=== PATIENT | male | born 1970 | race Caucasian/White ===

== ENCOUNTER 2019-11-10 20:58 | Inpatient (IN) | payer OTHER ==
[~2019-11-10] VITALS: Ht 177.8 cm; Wt 137.8 kg
[~2019-11-10 20:58] MED LIST: ACCUNEB SO1.25 MG/1; ALBUTEROL2.5 MG/31 IH; APAP/CODEINE ELI5 M1 PO; BACTRIM DS TAB1 EACH PO; CIPROFLOXACIN500 M1 PO; CORTISPORIN OTI10 M2 OT; DOXYCYCLINE 10100 MG PO; MEDROLDOSEPACK PO; MICARDIS HCT 81 EACH PO; MUCINEX600 MG PO; NORCO 5-325 TA1 EACH PO; VICOPROFEN 2001 EACH PO; ZPAK PO
[2019-11-10 20:59] VITALS: BP 178/103
[2019-11-10] MEDS ORDERED: METFORMIN HCL500 M3 PO (21:09)
[2019-11-10] MEDS ORDERED: PROAIR HFA8.5 GM INH (21:09)
[2019-11-10] MEDS ORDERED: ADVAIR HFA 115-12 G1 INH (21:10)
[2019-11-10] MEDS ORDERED: LIPITOR10 MG PO (21:11)
[2019-11-10 21:35] LABS: ABSOLUTE BASOPHILS 0.1 thou/uL (0.0-0.2); ABSOLUTE EOSINOPHILS 0.3 thou/uL (0.0-0.7); ABSOLUTE LYMPHOCYTES 2.7 thou/uL (0.8-5.3); ABSOLUTE MONOCYTES 0.5 thou/uL (0.0-1.2); ABSOLUTE NEUTROPHILS 4.6 thou/uL (1.6-8.1); BASOPHILS 1.3 %; EOSINOPHILS 3.4 %; HEMATOCRIT 45.2 % (42.0-52.0); LYMPHOCYTES 33.3 %; MCH 32.9 pg (26.0-34.0); MCHC 35.4 g/dL (28.0-37.0); MCV 92.9 fL (80.0-100.0); MONOCYTES 6.6 %; MPV 8.4 fl. (7.2-11.1); NUCLEATED RBCS 0 /100WBC; PLATELET COUNT* 243 thou/uL (150-400); POLYS 55.4 %; RBC 4.86 mil/uL (4.50-6.00); RDW-CV 12.9 % (10.5-14.5); WBC 8.2 thou/uL (4.0-11.0)
[2019-11-10 21:46] LABS: CALCIUM 8.6 mg/dL (8.5-10.1); POTASSIUM 4.2 mmol/L (3.5-5.1)
[2019-11-10 21:48] LABS: INR 0.9; PROTIME 9.6 Seconds (9.20-11.50)
[2019-11-10 21:57] LABS: ALBUMIN 3.5 g/dL (3.4-5.0); MAGNESIUM 1.7 mg/dL (1.8-2.4); TOTAL BILIRUBIN 0.4 mg/dL (<0.1-1.0); TOTAL PROTEIN 7.7 g/dL (6.4-8.2)
[2019-11-10 22:51] LABS: URINE BILIRUBIN NEGATIVE (Negative); URINE BLOOD TRACE (Negative); URINE CLARITY CLEAR; URINE COLOR YELLOW; URINE GLUCOSE-RANDOM 1+ (Negative); URINE KETONES NEGATIVE (Negative); URINE LEUKOCYTES-REFLEX NEGATIVE (Negative); URINE NITRITE-REFLEX NEGATIVE (Negative); URINE PROTEIN 1+ (Negative); URINE SPECIFIC GRAVITY 1.025 (1.005-1.030); URINE UROBILINOGEN 0.2 E.U./dl (0.2-1.0)
[2019-11-10 23:09] LABS: AMP/METHAMP Negative (Negative); BARBITURATES Negative (Negative); BENZODIAZEPINES Negative (Negative); COCAINE Negative (Negative); METHADONE Negative (Negative); OPIATES POSITIVE (Negative); PCP Negative (Negative); THC Negative (Negative)
[2019-11-11] VITALS (16 sets, daily range): BP systolic 106–152; BP diastolic 61–86
[2019-11-11 09:14] LABS: HEMATOCRIT 43.4 % (42.0-52.0); HEMOGLOBIN 15.3 gm/dL (14.0-18.0); MCH 32.7 pg (26.0-34.0); MCHC 35.2 g/dL (28.0-37.0); MCV 92.8 fL (80.0-100.0); MPV 8.8 fl. (7.2-11.1); RBC 4.67 mil/uL (4.50-6.00); RDW-CV 12.8 % (10.5-14.5); WBC 8.2 thou/uL (4.0-11.0)
[2019-11-11 09:22] LABS: APTT 25.3 Seconds (25.0-31.3); INR 0.9; PROTIME 9.7 Seconds (9.20-11.50)
[2019-11-11 09:36] LABS: ANION GAP 7 mmol/L (7-16); BUN 10 mg/dL (7-18); CALCIUM 8.2 mg/dL (8.5-10.1); CHLORIDE 102 mmol/L (98-107); CHOLESTEROL 159 mg/dL (<200); CO2 27 mmol/L (21-32); CREATININE 0.8 mg/dL (0.6-1.3); GLUCOSE 208 mg/dL (70-99); HDL CHOLESTEROL 21 mg/dL (>40); LDL CHOLESTEROL 87 mg/dL (<100); MAGNESIUM 1.7 mg/dL (1.8-2.4); POTASSIUM 4.1 mmol/L (3.5-5.1); SODIUM 136 mmol/L (136-145); TC:HDL 7.6 Ratio (Not establshd); TRIGLYCERIDE 258 mg/dL (<150); VLDL 52 mg/dL (<40)
[2019-11-11 09:39] LABS: SERUM ASSESSMENT Clear; TROPONIN-I LEVEL 1.04 ng/mL (<0.06)
--- NOTE | 2019-11-11 11:05 | EKG ---
[place] [address] ELECTROCARDIOGRAM REPORT Name: PADMINI PINTO Room: [address] ADM IN .R.#: [id number] Admission: 11/11/19 Attend Phys: Parisa Pal Discharge: Date of : 70 Date of Service: 11/10/192100 Report #: [id number] THIS REPORT FOR: //name// [facility] ED Test Date: 2019-11-10 Test Time: 21:01:09 Pat Name: PADMINI PINTO Department: Room: [facility] Gender: M Management Trainer: [place] : 1970 Requested By: Donna Austin Order Number: [id number] MD: Nehemias Calderón Measurements Intervals [place] Rate: 91 P: 68 UT: 135 QRS: 37 QRSD: 97 T: 19 QT: 351 QTc: 432 Interpretive Statements Sinus rhythm Baseline wander in lead(s) II,III,aVR,aVL,aVF Compared to ECG 06/08/2009 23:48:49 Sinus tachycardia no longer present Electronically Signed On 11-11-2019 11:05:28 CDT by Nehemias Calderón [email or web address] <ELECTRONICALLY SIGNED> By: Nehemias Calderón MD, FACC 11/11/19 1105 00 00 Nehemias Calderón MD, FAC /EPI
--- NOTE | 2019-11-11 11:10 | EKG ---
[place] [address] ELECTROCARDIOGRAM REPORT Name: PADMINI PINTO Room: [address] ADM IN M.R.#: [id number] Admission: 11/11/19 Attend Phys: Parisa Pal Discharge: Date of : 70 Date of Service: 11/11/19 0949 Report #: [id number] THIS REPORT FOR: //name// [facility] Test Date: 2019-11-11 Test Time: 09:49:08 Pat Name: PADMINI PINTO Department: Room: [address] Gender: M Product Safety Consultant: : 1970 Requested By: Alex Ga Order Number: [id number] Eduardo MD: Nehemias Calderón Measurements Intervals [place] Rate: 65 P: 57 ID: 133 QRS: 44 QRSD: 102 T: 9 QT: 414 QTc: 431 Interpretive Statements Sinus rhythm Compared to ECG 11/10/2019 21:01:09 No significant changes Electronically Signed On 11-11-2019 11:10:35 CDT by Nehemias Calderón [email or web address] <ELECTRONICALLY SIGNED> By: Nehemias Calderón MD, [facility] 11/11/19 1110 0949 0949 Nehemias Calderón MD, [facility] /EPI
--- NOTE | 2019-11-11 16:55 | CARD ---
[address] [address] CARDIAC CATH REPORT Name: PADMINI PINTO Room: [address] IN [facility]#: [id number] Admission: 11/11/19 Attend Phys: Tirso Leahy Discharge: Date of : 70 Report #: [id number] THIS REPORT FOR: //name// cc: Burt Howard Russell J. DO ~ APPROVED REPORT Study performed: 11/11/2019 13:38:07 Patient Details Patient Status: In-Patient Room #: The patient is a 49 year-old male Event Personnel Nehemias Calderón Director Of Social Work, Eboni Lehman Anesthesia Associate, Fariha Tuttle RN Anesthesia Associate, Moses Turcios DELI MANAGER Monitor, Mitzi Wang RTR Scrub Procedures Performed Left Heart Cath w/or w/o Coronaries [id number] [facility] Left Heart Cath w/or w/o Coronaries [id number] [facility] Indication Non-STEMI , Chest pain Risk Factors Diabetes Tobacco History () Admission/Lab Medications/Medications given during procedure Heparin Unfract. Procedure Narrative The patient was brought electively to the Cardiac Catheterization Laboratory and was prepped and draped in a sterile manner. The right wrist was infiltrated with 1% Lidocaine subcutaneous anesthesia. A Slender Glidesheath sheath was inserted into the RRA. Coronary angiography was performed using coronary diagnostic catheters. The right coronary system was accessed and visualized with a JR4 catheter. The left coronary system was accessed and visualized with a JL3.5 catheter. The left ventricle was accessed and visualized with a Angled PIG catheter. Left ventricular/Aortic Valve gradient assessed via catheter pullback. Closure device was deployed with a 6 Fr R-Band. The patient tolerated the procedure well and there were no complications associated with the procedure. [place] [address] CARDIAC CATH REPORT Name: PADMINI PINTO Room: [address] IN [facility]#: [id number] Admission: 11/11/19 Attend Phys: Tirso Leahy Discharge: Date of : 70 Report #: [id number] Intraoperative Conscious Sedation Sedation start time: 1425 Case end Time: 1446 Fentanyl 25.0 mcg Fluoro Time: 3.2 minutes Dose: DAP 37697 cGycm2 1171 mGy Contrast Type and Amount: Omnipaque 100 ml Coronary Angiography The patient's coronary anatomy is right dominant. [place] Artery Percent Stenosis Left Main: 0 % Prox LAD: 50 % Mid/Distal LAD: 0 % Circumflex: 0 % RCA: 0 % Ramus: 0 % Left Ventriculography The left ventricular ejection fraction is estimated to be 50-55%. Left ventricular wall motion abnormalities are not present. There is no mitral insufficiency. Hemodynamics The aortic pressure is 141/85 mmHg with a mean of 112 mmHg. The left ventricular pressure is 135/10 mmHg with a mean of mmHg. The left ventricular end diastolic pressure is 19 mmHg. There was no gradient across the aortic valve upon pullback. Pullback from the left ventricle to the aorta revealed no gradient across the aortic valve. Conclusion 1. 50% stenosis noted of the proximal lad 2. LVEF 50-55% 3. Suspect noncardiac chest pain, and falsely minimal elevation of troponin Recommendations Smoking Cessation <ELECTRONICALLY SIGNED> By: Nehemias Calderón MD, FACC 11/11/191654 54 54Damariel Calderón MD, FACC /INF
[2019-11-12] VITALS: BP 126/74
[2019-11-12 02:06] LABS: GLYCOHEMOGLOBIN (HGB A1C) 8.9 % (4.8-5.6)
[2019-11-12 04:30] VITALS: BP 136/77
[2019-11-12] MEDS ORDERED: TRADJENTA5 MG PO (08:34)
[2019-11-12] MEDS ORDERED: ASA81BEC PO (08:35)
[2019-11-12] MEDS ORDERED: NITROGLYCERIN0.4 MG SUBLING (08:35)
[2019-11-12] MEDS ORDERED: OMEPRAZOLE40 MG PO (08:36)
[2019-11-12] MEDS ORDERED: METOPROLOL TART25 MG PO (08:39)
[2019-11-12] MEDS ORDERED: PLAVIX 75 MG TA75 MG PO (09:05)
[2019-11-12 10:25] VITALS: BP 136/77
[2019-11-12 11:00] VITALS: BP 136/77
--- NOTE | 2019-11-14 15:01 | CON ---
[address] [address] CONSULTATION Name: PADMINI PINTO Room: [address] IN M.R.#: [id number] Admission: 11/11/19 Attend Phys: Tirso Leahy Discharge: 11/12/19 Date of : 70 Report #: [id number] THIS REPORT FOR: //name// cc: Burt Howard Russell J. DO ~ THIS REPORT FOR: //name// CC: Parisa Howard DO DATE OF SERVICE: 11/11/2019 CARDIOLOGY CONSULTATION PRIMARY CARE PHYSICIAN: Burt Howard DO HISTORY OF PRESENT ILLNESS: The patient is a 49-year-old single white male who I was asked to see in the hospital today after he complained of chest pain. The patient has no previous history of heart disease. He does not exercise on a regular basis. He was doing well until yesterday, he was driving his truck when all of sudden he felt a discomfort in his chest, jaw, neck and arms. He denied any diaphoresis or nausea. He does cough every day, but denies any chest pain being related to cough. He denied any chest pain related to swallowing. He has had no belching. He has had no bleeding. Denied rash on his chest. He called the ambulance and he was brought here to [place]. The pain persisted throughout the night. Cardiology consultation was requested. He does have exertional dyspnea, occasional episodes where his heart rate would increase. He has had no syncope, leg edema or leg pain. PAST MEDICAL HISTORY: He has had hernia repair, elbow surgery, diabetes, hyperlipidemia and sleep apnea. MEDICATIONS: Include metformin, Lipitor, CPAP. FAMILY HISTORY: Significant for hypertension. SOCIAL HISTORY: He is single, lives with a girlfriend in [place]. He is a armored truck driver. Smokes one-half pack of cigarettes a day. No alcohol abuse, no illicit drug use. REVIEW OF SYSTEMS: He is overweight, being 5 feet 8 inches, 300 pounds. He has sleep apnea. No stroke. He has COPD. No liver disease, no kidney disease, no cancer. No psychiatric illness. No chronic skin condition. PHYSICAL EXAMINATION: [place] [address] CONSULTATION Name: PADMINI PINTO Room: [address]#: [id number] Admission: 11/11/19 Attend Phys: Tirso Leahy Discharge: 11/12/19 Date of : 70 Report #: [id number] GENERAL: Revealed a large, obese male, lying in bed. He appeared in no acute distress. VITAL SIGNS: He had a blood pressure of 150/80, pulse is 80. He was afebrile. HEENT: He was anicteric. Conjunctivae pink. Mucous membranes moist. NECK: Veins difficult to assess due to obesity. No carotid bruits. CHEST: Clear to auscultation. CARDIOVASCULAR: Regular rate and rhythm without murmur. ABDOMEN: Obese. EXTREMITIES: Had no edema. Dorsalis pedis pulse 1+ bilaterally. SKIN: Cool and dry. NEUROLOGIC: Nonfocal. RADIOLOGICAL DATA: His ECG on admission last night showed a sinus rhythm. There was no significant ST or T-wave change noted. His x-rays last night; he had a CT scan of the chest using a PE protocol that showed no pulmonary embolus, some atelectasis, small nodule. His chest x-ray was unremarkable, borderline heart size. LABORATORY DATA: Sodium 136, creatinine 0.8, glucose 208. Liver function studies were normal. His troponin 1.0. His cholesterol 159, triglyceride 258, HDL 21, LDL 87. His hemoglobin is 15.3. IMPRESSION AND RECOMMENDATIONS: 1. Non-ST elevation myocardial infarction. Recommend cardiac catheterization. 2. Hypertension. 3. Diabetes. 4. Hypertriglyceridemia. 5. Sleep apnea. 6. Obesity. 7. Neck pain. Suspect musculoskeletal. <ELECTRONICALLY SIGNED> By: Nehemias Calderón MD, FACC 11/14/19 1501 1135 1208David Mayra Calderón MD, FACC /nt
== END 2019-11-12 11:45 | disposition home or self-care (01) | DRG 280 ==
LOC: M.ERS 20:58 → M.TBA-ER 11-11 00:08 → M.2W 11-11 02:03
PROVIDERS: Emergency Medicine; Internal Medicine; ADMIT Internal Medicine; ATTEND Internal Medicine
PROC: B2111ZZ Fluoroscopy of Multiple Coronary Arteries using Low Osmolar Contrast (ICD-10-PCS; principal; 2019-11-11)
PROC: B2151ZZ Fluoroscopy of Left Heart using Low Osmolar Contrast (ICD-10-PCS; principal; 2019-11-11)
PROC: 4A023N7 Measurement of Cardiac Sampling and Pressure, Left Heart, Percutaneous Approach (ICD-10-PCS; principal; 2019-11-11)
DX: I21.4 Non-ST elevation (NSTEMI) myocardial infarction (principal); I50.31 Acute diastolic (congestive) heart failure; Z68.41 Body mass index [BMI] 40.0-44.9, adult; K21.9 Gastro-esophageal reflux disease without esophagitis; J98.01 Acute bronchospasm; I11.0 Hypertensive heart disease with heart failure; E11.9 Type 2 diabetes mellitus without complications; G47.30 Sleep apnea, unspecified; F17.210 Nicotine dependence, cigarettes, uncomplicated; E78.1 Pure hyperglyceridemia; M54.2 Cervicalgia; J44.9 Chronic obstructive pulmonary disease, unspecified; E66.01 Morbid (severe) obesity due to excess calories; G89.29 Other chronic pain; E83.42 Hypomagnesemia; R59.1 Generalized enlarged lymph nodes; D71 Functional disorders of polymorphonuclear neutrophils; I73.9 Peripheral vascular disease, unspecified; Z20.828 Contact with and (suspected) exposure to other viral communicable diseases; Z72.89 Other problems related to lifestyle; Z79.84 Long term (current) use of oral hypoglycemic drugs; Z79.899 Other long term (current) drug therapy; Z88.1 Allergy status to other antibiotic agents; Z88.0 Allergy status to penicillin

== ENCOUNTER 2019-12-12 07:37 | Observation (INO) | payer OTHER ==
[~2019-12-12] VITALS: Ht 152.4 cm; Wt 65.2 kg
[2019-12-12] VITALS (8 sets, daily range): BP systolic 115–155; BP diastolic 68–87
--- NOTE | ~2019-12-12 | H ---
[address] [address] HISTORY AND PHYSICAL Name: PADMINI PINTO Room: [address] [place]#: [id number] Admission: 12/12/19 Attend Phys: Jeremiah Jackson MD, Discharge: 12/13/19 Date of : 70 Report #: [id number] THIS REPORT FOR: //name// cc: Burt Howard Russell J. DO ~ Please refer to the History and Physical performed in the physician's office. By: [id number] Records Staff [facility] /LASHONDA
[~2019-12-12 07:37] MED LIST changes: +ADVAIR HFA 115-12 G1 INH; +ASA81BEC PO; +LIPITOR10 MG PO; +METFORMIN HCL500 M3 PO; +METOPROLOL TART25 MG PO; +NITROGLYCERIN0.4 MG SUBLING; +OMEPRAZOLE40 MG PO; +PLAVIX 75 MG TA75 MG PO; +PROAIR HFA8.5 GM INH; +TRADJENTA5 MG PO
[2019-12-12 08:24] LABS: HEMATOCRIT 43.5 % (42.0-52.0); HEMOGLOBIN 15.1 gm/dL (14.0-18.0); MCH 32.1 pg (26.0-34.0); MCHC 34.7 g/dL (28.0-37.0); MCV 92.4 fL (80.0-100.0); MPV 8.3 fl. (7.2-11.1); RBC 4.71 mil/uL (4.50-6.00); WBC 8.3 thou/uL (4.0-11.0)
[2019-12-12 08:37] LABS: ANION GAP 9 mmol/L (7-16); APTT 22.6 Seconds (25.0-31.3); BUN 12 mg/dL (7-18); CALCIUM 8.2 mg/dL (8.5-10.1); CHLORIDE 101 mmol/L (98-107); CO2 27 mmol/L (21-32); CREATININE 0.8 mg/dL (0.6-1.3); GLUCOSE 304 mg/dL (70-99); INR 0.9; POTASSIUM 4.2 mmol/L (3.5-5.1); PROTIME 9.5 Seconds (9.20-11.50); SODIUM 137 mmol/L (136-145)
[2019-12-12 08:41] LABS: ALBUMIN 3.6 g/dL (3.4-5.0); ALKALINE PHOSPHATASE 130 U/L (46-116); CHOLESTEROL 117 mg/dL (<200); HDL CHOLESTEROL 21 mg/dL (>40); LDL CHOLESTEROL 55 mg/dL (<100); SGOT 17 U/L (15-37); SGPT 34 U/L (30-65); TC:HDL 5.6 Ratio (Not establshd); TOTAL BILIRUBIN 0.4 mg/dL (<0.1-1.0); TOTAL PROTEIN 7.6 g/dL (6.4-8.2); TRIGLYCERIDE 208 mg/dL (<150); VLDL 42 mg/dL (<40)
[2019-12-12 08:42] LABS: SERUM ASSESSMENT Clear
--- NOTE | 2019-12-12 18:30 | EKG ---
[place] [address] ELECTROCARDIOGRAM REPORT Name: PADMINI PINTO Room: [address] M.R.#: [id number] Admission: 12/12/19 Attend Phys: Tirso Art Discharge: Date of : 70 Date of Service: 12/12/19 0852 Report #: [id number] THIS REPORT FOR: //name// [facility] Test Date: 2019-12-12 Test Time: 08:52:42 Pat Name: PADMINI PINTO Department: Room: [facility] Gender: M Ingot Caster: : 1970 Requested By: Jeremiah Jackson Order Number: [id number] Eduardo MD: Tk Burgess Measurements Intervals [place] Rate: 74 P: 58 MS: 128 QRS: 42 QRSD: 102 T: 11 QT: 389 QTc: 432 Interpretive Statements Sinus rhythm Compared to ECG 11/11/2019 09:49:08 No significant changes Electronically Signed On 12-12-2019 18:30:17 CDT by Tk Burgess [email or web address] <ELECTRONICALLY SIGNED> By: Tk Burgess MD, FACC 12/12/19 1830 0852 0852 Tk Burgess MD, [facility] /EPI
--- NOTE | 2019-12-12 18:32 | EKG ---
[place] [address] ELECTROCARDIOGRAM REPORT Name: PADMINI PINTO Room: [address] M.R.#: [id number] Admission: 12/12/19 Attend Phys: Tirso Art Discharge: Date of : 70 Date of Service: 12/12/19 1314 Report #: [id number] THIS REPORT FOR: //name// [facility] Test Date: 2019-12-12 Test Time: 13:14:26 Pat Name: PADMINI PINTO Department: Room: [facility] Gender: M Government Property Inspector: : 1970 Requested By: Jeremiah Jackson Order Number: [id number] Eduardo MD: Tk Burgess Measurements Intervals [place] Rate: 65 P: 32 HI: 130 QRS: 46 QRSD: 107 T: 13 QT: 411 QTc: 428 Interpretive Statements Sinus rhythm Compared to ECG 12/12/2019 08:52:42 No significant changes Electronically Signed On 12-12-2019 18:32:41 CDT by Tk Burgess [email or web address] <ELECTRONICALLY SIGNED> By: Tk Burgess MD, FACC 12/12/19 1832 1314 1314 Tk Burgess MD, [facility] /EPI
[2019-12-13] VITALS: BP 134/63
[2019-12-13 04:00] VITALS: BP 122/62
[2019-12-13] MEDS ORDERED: PROAIR HFA8.5 GM INH (06:44)
[2019-12-13 07:04] LABS: HEMATOCRIT 42.9 % (42.0-52.0); HEMOGLOBIN 14.9 gm/dL (14.0-18.0); MCH 31.9 pg (26.0-34.0); MCHC 34.7 g/dL (28.0-37.0); MCV 91.9 fL (80.0-100.0); MPV 8.5 fl. (7.2-11.1); RBC 4.67 mil/uL (4.50-6.00); RDW-CV 12.8 % (10.5-14.5)
[2019-12-13 07:11] LABS: ALBUMIN 3.4 g/dL (3.4-5.0); CALCIUM 8.4 mg/dL (8.5-10.1); CREATININE 0.7 mg/dL (0.6-1.3); POTASSIUM 4.1 mmol/L (3.5-5.1); TOTAL BILIRUBIN 0.5 mg/dL (<0.1-1.0); TROPONIN-I LEVEL 0.32 ng/mL (<0.06)
[2019-12-13 07:30] VITALS: BP 120/67
[2019-12-13 08:34] VITALS: BP 122/62
[2019-12-13] MEDS ORDERED: PRASUGREL HCL10 MG PO (08:42)
[2019-12-13 10:39] VITALS: BP 122/62
[2019-12-13 11:00] VITALS: BP 122/62
--- NOTE | 2019-12-13 11:22 | CARD ---
[address] [address] CARDIAC CATH REPORT Name: PADMINI PINTO Room: [address] M.R.#: [id number] Admission: 12/12/19 Attend Phys: Jeremiah Jackson MD, Discharge: Date of : 70 Report #: [id number] THIS REPORT FOR: //name// cc: Burt Howard Russell J. DO ~ APPROVED REPORT Study performed: 12/12/2019 08:41:02 Patient Details Patient Status: Out-Patient Room #: The patient is a 49 year-old male Event Personnel Jeremiah Jackson Ultrasound Technologist, Mitzi Wang RTR ScrubYulissa Adam RTR Monitor, Fariha Tuttle RN humane officer Performed Left Heart Cath w/or w/o Coronaries [id number] [facility] w/wo Plasty Single LAD [id number] Hemostasis w/ Angioseal Indication Unstable angina , Recent non-STEMI Risk Factors Obesity, Hypercholesterolemia, Hypertension Admission/Lab Medications/Medications given during procedure Fentanyl IV 25 mcg, Midazolam (Versed) IV 2 mg, Lidocaine Subcut 20 ml, Midazolam (Versed) IV 1 mg, Nitroglycerin IC 150 mcg, Angiomax IV 10 ml, Angiomax IV 48.48 ml per hr, Aspirin PO 162 mg, Effient PO 60 mg Procedure Narrative The patient was brought electively to the Cardiac Catheterization Laboratory and was prepped and draped in a sterile manner. The right femoral was infiltrated with 2% Lidocaine subcutaneous anesthesia. A Haugen 6 FR sheath was inserted into the right femoral artery. Coronary angiography was performed using coronary diagnostic catheters. The right coronary system was accessed and visualized with a Diagnostic 6Fr JR4 catheter. The left coronary system was accessed and visualized with a Diagnostic 6Fr JL4 catheter. The left ventricle was accessed and visualized with a Diagnostic 6Fr Straight Pigtail catheter. Left ventricular/Aortic Valve gradient assessed via catheter pullback. Pre-demployment femoral [place]ogram [place] [address] CARDIAC CATH REPORT Name: PADMINI PINTO Room: [address]#: [id number] Admission: 12/12/19 Attend Phys: Jeremiah Jackson MD, Discharge: Date of : 70 Report #: [id number] Closure device was deployed with a 6 Fr Angioseal. The patient tolerated the procedure well and there were no complications associated with the procedure. There was no hematoma. Intraoperative Conscious Sedation Sedation start time: 1002 Case end Time: 1111 Fentanyl 100 mcg Versed 5 mg Fluoro Time: 17.5 minutes Dose: DAP 574398 cGycm2 3164.76 mGy Contrast Type and Amount: Visipaque 340 ml Diagnostic Cath Left Main 0% narrowing LAD 75% eccentric proximal LAD stenosis Circumflex 30% mid vessel narrowing Right Coronary Large dominant vessel with 0% narrowing Left Ventriculography The left ventricle is normal in size with normal contractility. The left ventricular ejection fraction is estimated to be 60%. Left ventricular wall motion abnormalities are present. There is no mitral insufficiency. Hemodynamics The aortic pressure is 145/60 mmHg with a mean of 92 mmHg. The left ventricular pressure is 118/7 mmHg with a mean of mmHg. The left ventricular end diastolic pressure is 18 mmHg. There was no gradient across the aortic valve upon pullback. PCI Technique Lesion Anticoagulation was achieved with Angiomax. Percutaneous coronary intervention was performed on the proximal left anterior descending artery segment. The lesion stenosis prior to intervention was 75% with SHONDA 3 flow. A 6F XB LAD 3.5 Guide Catheter was used to engage the Left ostium. A BMW 190cm Interventional Guidewire was used to cross the lesion. BALLOON DILATION A Balloon catheter Euphora SC 2.75x10 was inserted and inflated up to 14.00atm for 15seconds. STENT DEPLOYMENT A drug-eluting stent Gregg RX Stent 3.0X15mm was inserted and inflated up to 16.00atm for 16seconds. Additional Inflation: 20.00atm [place] [address] CARDIAC CATH REPORT Name: PADMINI PINTO Room: [address] M.RFreddie#: [id number] Admission: 12/12/19 Attend Phys: Jeremiah Jackson MD, Discharge: Date of : 70 Report #: [id number] for 12seconds. POST STENT DEPLOYMENT BALLOON DILATION A Balloon catheter NC Trek RX 3.25X8 was inserted and inflated up to 16.00atm for 11seconds. Additional Inflation: 18.00atm for 9seconds. A Balloon Catheter NC Trek RX 3.5 X 8 was inserted and inflated up to 14.00 bobo for 12 seconds. Additional Inflation: 15 bobo for 10 seconds. Final angiography reveals 0 % stenosis with SHONDA 3 flow. Conclusion 1. Significant coronary artery disease characterized by the following: A 75% eccentric proximal LAD stenosis B 30% mid circumflex narrowing 2. Normal left ventricular systolic function, estimated ejection fraction being 60% 3. Modest elevation of left ventricular end-diastolic pressure at rest 4. Successful PCI with deployment of a drug-eluting stent at the site of 75% proximal LAD stenosis with 0% residual narrowing and SHONDA-3 flow to the distal vessel Recommendations Cardiac Risk Reduction Program Aggressive Medical Therapy Medications Administered Aspirin (any) Prasugrel Diagnostic Cath Approved by: Jeremiha Jackson MD Date/Time: 12/13/2019 11:20:31 <ELECTRONICALLY SIGNED> By: Jeremiah Jackson MD, FACC 12/13/19 1122 21 112Jeremiah Jackson MD, FACC /INF
--- NOTE | 2019-12-13 15:56 | EKG ---
[place] [address] ELECTROCARDIOGRAM REPORT Name: PADMINI PINTO Room: [address]#: [id number] Admission: 12/12/19 Attend Phys: Tirso Art Discharge: 12/13/19 Date of : 70 Date of Service: 12/13/19 0623 Report #: [id number] THIS REPORT FOR: //name// [facility] Test Date: 2019-12-13 Test Time: 06:23:29 Pat Name: PADMINI PINTO Department: Room: [facility] Gender: M Music Composer: ALEXA : 1970 Requested By: Jeremiah Jackson Order Number: [id number] Eduardo MD: Jeremiah Jackson Measurements Intervals [place] Rate: 74 P: 63 [place]: 131 QRS: 47 QRSD: 100 T: 19 QT: 377 QTc: 419 Interpretive Statements Sinus rhythm Compared to ECG 12/12/2019 13:14:26 No significant changes Electronically Signed On 12-13-2019 15:56:46 CDT by Jeremiah Jackson [email or web address] <ELECTRONICALLY SIGNED> By: Jeremiah Jackson MD, [facility] 12/13/19 1556 0623 0623 Jeremiah Jackson MD, [facility] /EPI
--- NOTE | 2019-12-15 10:46 | D ---
[address] [address] DISCHARGE SUMMARY Name: PADMINI PINTO Room: [address] [place]#: [id number] Admission: 12/12/19 Attend Phys: Jeremiah Jackson MD, Discharge: 12/13/19 Date of : 70 Report #: [id number] THIS REPORT FOR: //name// cc: Burt Howard Russell J. DO ~ THIS REPORT FOR: //name// CC: Jeremiah Howard DATE OF SERVICE: 12/13/2019 FINAL DISCHARGE DIAGNOSES: 1. Angina, status post recent non-ST segment elevation myocardial infarction. 2. Hypertension. 3. Hyperlipidemia. 4. Tobacco abuse. 5. Diabetes mellitus. PROCEDURES: 12/12/2019 -- left heart catheterization, left ventriculography, selective coronary arteriography and percutaneous coronary intervention with stenting of the proximal LAD. HOSPITAL COURSE: The patient is a very pleasant 49-year-old male who presented recently with non-ST segment elevation myocardial infarction. He underwent catheterization, which revealed a moderate to moderately severe proximal LAD lesion, which was not approached in that setting. He was placed on dual antiplatelet therapy as well as additional medicines directed at blood pressure, diabetes and cholesterol. He experienced two episodes of chest discomfort similar to his prior ischemic pain, but not as severe and ultimately in that context for a post-infarct angina, I recommended repeat cardiac catheterization, which was undertaken on 12/12/2019. That study revealed 75% eccentric stenosis of the proximal LAD with a suggestion of a ruptured plaque. I placed one drug-eluting stent there and postdilated to 3.5 mm with 0% residual narrowing and SHONDA 3 flow over the distal vessel. Post-procedurally, troponin steve inconsequentially to 0.32. Additional labs with sodium 138, potassium 4.1, BUN 8, creatinine 0.7, glucose 222, hemoglobin 14.9, white blood cell count 9000, platelets 244,000. He ambulated in the hallways without difficulty and there was good hemostasis at the right femoral site of catheterization. DISCHARGE MEDICATIONS: He was discharged to home on the following medications: [place] [address] DISCHARGE SUMMARY Name: MILLIEPADMINI W [address] [id number] Admission: 12/12/19 Attend Phys: Jeremiah Jackson MD, Discharge: 12/13/19 Date of : 70 Report #: [id number] Metformin 500 mg b.i.d. to be resumed on 12/13, fluticasone 2 puffs b.i.d., atorvastatin 10 mg at bedtime, Tradjenta 5 mg daily, aspirin 81 mg daily, prasugrel 10 mg daily with a 60-mg periprocedural dose having been given, p.r.n. sublingual nitroglycerin, metoprolol tartrate 12.5 mg b.i.d., omeprazole 40 mg daily, and ProAir 2 puffs every 4-6 hours p.r.n. wheezing. The patient is scheduled to return to see our nurse practitioner in 2-4 weeks with subsequent followup with Dr. Calderón and myself. Therefore, the patient is discharged to home in stable condition on the aforementioned medications with followup as described above. Discharge dictation is 35 minutes from 9:15 to 9:40. <ELECTRONICALLY SIGNED> By: Jeremiah Jackson MD, FACC 12/15/19 1046 0944 0957Jeremiah Jackson MD, FACC /nt
== END 2019-12-13 11:15 | disposition home or self-care (01) ==
LOC: M.CL 07:37 → M.2W 10:42 → M.TBA-CV 10:42 → M.2W 13:50
PROVIDERS: ADMIT Internal Medicine; ATTEND Internal Medicine
DX: I25.118 Atherosclerotic heart disease of native coronary artery with other forms of angina pectoris (principal); I10 Essential (primary) hypertension; E78.5 Hyperlipidemia, unspecified; E11.9 Type 2 diabetes mellitus without complications; I21.4 Non-ST elevation (NSTEMI) myocardial infarction; F17.210 Nicotine dependence, cigarettes, uncomplicated; Z79.899 Other long term (current) drug therapy; Z20.828 Contact with and (suspected) exposure to other viral communicable diseases

== ENCOUNTER 2020-01-23 00:53 | Emergency (ER) | payer OTHER ==
[~2020-01-23] VITALS: Ht 177.8 cm; Wt 136.1 kg
[~2020-01-23 00:53] MED LIST changes: +PRASUGREL HCL10 MG PO
[2020-01-23] MEDS ORDERED: JANUVIA100 MG PO (01:03)
[2020-01-23] MEDS ORDERED: ALBUTEROL2.5 MG/31 INH (02:18)
[2020-01-23] MEDS ORDERED: HYDROCHLOROTHIA25 M2 PO (02:18)
[2020-01-23] MEDS ORDERED: PREDNISONE50 MG PO (02:21)
[2020-01-23 02:29] VITALS: BP 168/67
== END 2020-01-23 02:30 | disposition home or self-care (01) ==
LOC: M.ERS 00:53
DX: J40 Bronchitis, not specified as acute or chronic (principal); R60.0 Localized edema; I25.2 Old myocardial infarction; Z95.5 Presence of coronary angioplasty implant and graft; E11.9 Type 2 diabetes mellitus without complications; I10 Essential (primary) hypertension; E66.9 Obesity, unspecified; Z68.41 Body mass index [BMI] 40.0-44.9, adult; Z79.82 Long term (current) use of aspirin; Z79.899 Other long term (current) drug therapy; Z88.1 Allergy status to other antibiotic agents; Z88.0 Allergy status to penicillin

== ENCOUNTER 2020-12-23 14:37 | Emergency (ER) | payer OTHER ==
[~2020-12-23] VITALS: Ht 177.8 cm; Wt 116.1 kg
[~2020-12-23 14:37] MED LIST changes: +ALBUTEROL2.5 MG/31 INH; +HYDROCHLOROTHIA25 M2 PO; +JANUVIA100 MG PO; +PREDNISONE50 MG PO
[2020-12-23] MEDS ORDERED: HYDROCODON-ACE1 EAC7 PO (15:55)
[2020-12-23 16:10] VITALS: BP 130/73
== END 2020-12-23 16:11 | disposition home or self-care (01) ==
LOC: M.ERS 14:37
DX: S60.122A Contusion of left index finger with damage to nail, initial encounter (principal); M79.645 Pain in left finger(s); E11.9 Type 2 diabetes mellitus without complications; J45.909 Unspecified asthma, uncomplicated; E66.9 Obesity, unspecified; F17.210 Nicotine dependence, cigarettes, uncomplicated; Z68.36 Body mass index [BMI] 36.0-36.9, adult; Z79.82 Long term (current) use of aspirin; Z79.899 Other long term (current) drug therapy; Z88.1 Allergy status to other antibiotic agents; Z88.0 Allergy status to penicillin; W23.0XXA Caught, crushed, jammed, or pinched between moving objects, initial encounter; Y93.89 Activity, other specified; Y92.89 Other specified places as the place of occurrence of the external cause; Y99.8 Other external cause status